=== PATIENT | male | born 1995 | race Hispanic/Latino ===

== ENCOUNTER 2021-09-11 19:03 | Emergency (ER) | payer SELFPAY ==
[2021-09-11] MEDS ORDERED: Ketorolac Tromethamine 30 MG/ML VIAL ONE (20:19)
== END 2021-09-11 21:04 | disposition home or self-care (01) ==
LOC: CSHERS 19:03
DX: S39.012A Strain of muscle, fascia and tendon of lower back, initial encounter (principal); F17.210 Nicotine dependence, cigarettes, uncomplicated; X50.0XXA Overexertion from strenuous movement or load, initial encounter
CPT/HCPCS: 72100; J1885

== ENCOUNTER 2022-03-19 13:09 | Emergency (ER) | payer SELFPAY ==
[2022-03-19] MEDS ORDERED: Tetracaine 0.5% PF 4 ML BOT ONE (13:45)
[2022-03-19] MEDS ORDERED: Fluorescein Opthalmic Strip ONE (13:45)
== END 2022-03-19 15:04 | disposition home or self-care (01) ==
LOC: CSHERS 13:09
DX: H16.001 Unspecified corneal ulcer, right eye (principal); F17.210 Nicotine dependence, cigarettes, uncomplicated

== ENCOUNTER 2023-04-12 10:16 | Emergency (ER) | payer SELFPAY | END 2023-04-12 10:17 | disposition home or self-care (01) | LOC: CSHERS 10:16 | DX: T65.94XA Toxic effect of unspecified substance, undetermined, initial encounter (principal); L74.0 Miliaria rubra; F17.210 Nicotine dependence, cigarettes, uncomplicated | CPT/HCPCS: 99283 ==

== ENCOUNTER 2024-06-25 17:31 | Emergency (ER) | payer SELFPAY ==
[2024-06-25] MEDS ORDERED: Ketorolac Tromethamine 30 MG (1 mL) VIAL ONE (19:37)
== END 2024-06-25 20:17 | disposition home or self-care (01) ==
LOC: CSHERS 17:31
DX: S86.012A Strain of left Achilles tendon, initial encounter (principal); M25.571 Pain in right ankle and joints of right foot; F17.210 Nicotine dependence, cigarettes, uncomplicated; W12.XXXA Fall on and from scaffolding, initial encounter
CPT/HCPCS: 96372; 99283; J1885